=== PATIENT | male | born 1940 | race Caucasian/White ===

== ENCOUNTER 2022-11-02 16:58 | Emergency (ER) | payer MEDICARE, OTHER, SELFPAY ==
--- NOTE | 2022-11-02 17:02 | CT_ITS ---
PROCEDURE INFORMATION: Exam: CT Head Without Contrast Exam date and time: 11/02/2022 6:14 PM Age: 82 years old Clinical indication: Injury or trauma; Fall; Additional info: Trauma, critical injury suspected TECHNIQUE: Imaging protocol: Computed tomography of the head without contrast. Radiation optimization: All CT scans at this facility use at least one of these dose optimization techniques: automated exposure control; mA and/or kV adjustment per patient size (includes targeted exams where dose is matched to clinical indication); or iterative reconstruction. REPORTING DATA: Count of CT and Cardiac NM exams in prior 12 months: This patient has received 8 known CTs and 0 known cardiac nuclear medicine studies in the 12 months prior to the current study. COMPARISON: No relevant prior studies available. FINDINGS: Brain: Age-related volume loss. Decreased attenuation of the supratentorial white matter is likely secondary to chronic microvascular ischemia. 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 No acute intracranial hemorrhage or significant intracranial mass effect. Cerebral ventricles: Ventriculomegaly is commensurate for degree of volume loss. Paranasal sinuses: Visualized sinuses are unremarkable. No fluid levels. Mastoid air cells: Visualized mastoid air cells are well aerated. Bones/joints: Unremarkable. No acute fracture. Soft tissues: Unremarkable. IMPRESSION: No acute intracranial abnormality.
--- NOTE | 2022-11-02 17:02 | CT_ITS ---
PROCEDURE INFORMATION: Exam: CTA Head With Contrast, Arteriography Exam date and time: 11/02/2022 6:26 PM Age: 82 years old Clinical indication: Injury or trauma; Fall; Additional info: Trauma, critical injury suspected TECHNIQUE: Imaging protocol: Computed tomographic angiography of the head with contrast. Exam focused on the arteries. 3D rendering (Not supervised by radiologist): MIP and/or 3D reconstructed images were created by the technologist. Radiation optimization: All CT scans at this facility use at least one of these dose optimization techniques: automated exposure control; mA and/or kV adjustment per patient size (includes targeted exams where dose is matched to clinical indication); or iterative reconstruction. Contrast material: ISOVUE 370; Contrast volume: 100 ml; Contrast route: INTRAVENOUS (IV); REPORTING DATA: Count of CT and Cardiac NM exams in prior 12 months: This patient has received 8 known CTs and 0 known cardiac nuclear medicine studies in the 12 months prior to the current study. COMPARISON: CT HEAD/BRAIN WO CON 11/02/2022 6:14 PM FINDINGS: ANTERIOR CIRCULATION: Right internal carotid artery: Intracranial segment is patent with no significant stenosis. No aneurysm. Right middle cerebral artery: No occlusion or significant stenosis. No aneurysm. Right anterior cerebral artery: No occlusion or significant stenosis. No aneurysm. Left internal carotid artery: Intracranial segment is patent with no significant stenosis. No aneurysm. Left middle cerebral artery: No occlusion or significant stenosis. No aneurysm. Left anterior cerebral artery: No occlusion or significant stenosis. No aneurysm. POSTERIOR CIRCULATION: Right vertebral artery: Diminutive right intracranial vertebral artery. Left vertebral artery: Left vertebral artery is dominant. Basilar artery: Congenitally small caliber basilar artery. Right posterior cerebral artery: origin of the right posterior cerebral artery. Left posterior cerebral artery: origin of the left posterior cerebral artery. IMPRESSION: No acute vascular pathology.
--- NOTE | 2022-11-02 17:02 | CT_ITS ---
PROCEDURE INFORMATION: Exam: CT Cervical Spine Without Contrast Exam date and time: 11/02/2022 6:17 PM Age: 82 years old Clinical indication: Injury or trauma; Fall; Additional info: Trauma, critical injury suspected TECHNIQUE: Imaging protocol: Computed tomography of the cervical spine without contrast. Radiation optimization: All CT scans at this facility use at least one of these dose optimization techniques: automated exposure control; mA and/or kV adjustment per patient size (includes targeted exams where dose is matched to clinical indication); or iterative reconstruction. REPORTING DATA: Count of CT and Cardiac NM exams in prior 12 months: This patient has received 8 known CTs and 0 known cardiac nuclear medicine studies in the 12 months prior to the current study. COMPARISON: CT HEAD/BRAIN WO CON 11/02/2022 6:14 PM FINDINGS: Bones/joints: Vertebral body height and AP alignment is preserved. Previous fusion across C6-C7. There is chronic deformity involving the right articular facet of C6. Moderate degenerative change about the dens. Mild to moderate prevertebral osteophytosis. Bilateral facet joint degenerative change. No acute cervical spine fracture. No definite high-grade central canal stenosis within limitations of technique. Multilevel cervical foraminal stenoses. Lungs: Lung apices are normal. Pleural spaces: No visible pneumothorax. Vasculature: Vascular calcification. Soft tissues: Unremarkable. IMPRESSION: No acute cervical spine fracture.
--- NOTE | 2022-11-02 17:02 | CT_ITS ---
PROCEDURE INFORMATION: Exam: CTA Abdomen and Pelvis With Contrast Exam date and time: 11/02/2022 6:32 PM Age: 82 years old Clinical indication: Injury or trauma; Fall; Additional info: Trauma, critical injury suspected TECHNIQUE: Imaging protocol: Computed tomographic angiography of the abdomen and pelvis with contrast. 3D rendering (Not supervised by radiologist): MIP and/or 3D reconstructed images were created by the technologist. Total images: 445 Radiation optimization: All CT scans at this facility use at least one of these dose optimization techniques: automated exposure control; mA and/or kV adjustment per patient size (includes targeted exams where dose is matched to clinical indication); or iterative reconstruction. Contrast material: ISOVUE 370; Contrast volume: 100 ml; Contrast route: INTRAVENOUS (IV); REPORTING DATA: Count of CT and Cardiac NM exams in prior 12 months: This patient has received 8 known CTs and 0 known cardiac nuclear medicine studies in the 12 months prior to the current study. COMPARISON: CT BONY PELVIS 11/02/2022 6:24 PM FINDINGS: Diaphragm: Moderate elevation left hemidiaphragm. Aorta: Abdominal aorta is atherosclerotic but nonaneurysmal. No abdominal aortic aneurysm or dissection. 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 Celiac trunk and mesenteric arteries: No occlusion or significant stenosis. Renal arteries: No occlusion or significant stenosis. Right iliac arteries: Mildly atherosclerotic right common iliac artery. No stenosis or occlusion. Left iliac arteries: Mildly atherosclerotic left common iliac artery. No stenosis or occlusion. Veins: Numerous pelvic phleboliths. Liver: No mass. Gallbladder and bile ducts: Unremarkable. No calcified stones. No ductal dilation. Pancreas: Unremarkable. No mass. No ductal dilation. Spleen: Nonenlarged spleen with incidental calcified granuloma. Adrenal glands: Minor adrenal thickening. No adrenal mass. Kidneys and ureters: Bilateral peripelvic and renal cortical cysts. No concerning renal mass. Minor bilateral perinephric edema. Stomach and bowel: Collapsed stomach. Small duodenal diverticulum. No bowel obstruction or ileus. Unremarkable small bowel. Mild sigmoid diverticulosis without acute diverticulitis. Unremarkable rectum. Appendix: Normal appendix. Intraperitoneal space: Unremarkable. No free air. No significant fluid collection. Lymph nodes: No retroperitoneal mass, hematoma, or lymphadenopathy. Urinary bladder: Mild bladder wall thickening. Reproductive: Nonenlarged prostate. Bones/joints: Subacute fracture sacrococcygeal junction as described separately. No pelvic or hip fracture. Changes of the lumbar spine described separately. Soft tissues: Small bilateral fat containing inguinal hernias. No abdominal wall contusion or hematoma. IMPRESSION: 1. No acute posttraumatic intra-abdominal or pelvic process. 2. No abdominal aortic aneurysm or dissection. 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 3. Moderate elevation left hemidiaphragm. 4. Sigmoid diverticulosis without acute diverticulitis. 5. Nonspecific bladder wall thickening. 6. Additional chronic and incidental findings.
--- NOTE | 2022-11-02 17:02 | CT_ITS ---
PROCEDURE INFORMATION: Exam: CTA Neck With Contrast Exam date and time: 11/02/2022 6:26 PM Age: 82 years old Clinical indication: Injury or trauma; Fall; Additional info: Trauma, critical injury suspected TECHNIQUE: Imaging protocol: Computed tomographic angiography of the neck with contrast. 3D rendering (Not supervised by radiologist): MIP and/or 3D reconstructed images were created by the technologist. Radiation optimization: All CT scans at this facility use at least one of these dose optimization techniques: automated exposure control; mA and/or kV adjustment per patient size (includes targeted exams where dose is matched to clinical indication); or iterative reconstruction. Contrast material: ISOVUE 370; Contrast volume: 100 ml; Contrast route: INTRAVENOUS (IV); REPORTING DATA: Count of CT and Cardiac NM exams in prior 12 months: This patient has received 8 known CTs and 0 known cardiac nuclear medicine studies in the 12 months prior to the current study. COMPARISON: CT CERVICAL SPINE WO CON 11/02/2022 6:17 PM FINDINGS: Tubes, catheters and devices: Left chest cardiac device. Right common carotid artery: Mild calcification at the right common carotid bifurcation without stenosis. Right internal carotid artery: No stenosis of the extracranial segment. No dissection or occlusion. Right external carotid artery: No occlusion or stenosis of the origin. Left common carotid artery: No stenosis. No dissection or occlusion. Left internal carotid artery: No stenosis of the extracranial segment. No dissection or occlusion. Left external carotid artery: No occlusion or stenosis of the origin. Right vertebral artery: No stenosis. No dissection or occlusion. Left vertebral artery: No stenosis. No dissection or occlusion. Aorta: Aortic calcification. Soft tissues: Normal. No significant soft tissue swelling. Bones/joints: Cervical spine is better evaluated on dedicated exam. IMPRESSION: No acute vascular pathology. REFERENCES: NASCET CRITERIA. The degree of stenosis in the cervical segment of the internal carotid artery is based on NASCET criteria. Normal is no stenosis. Mild is less than 50% stenosis. Moderate is 50-69% stenosis. Severe is 70% to 99% stenosis. Total occlusion is no detectable patent lumen.
--- NOTE | 2022-11-02 17:02 | CT_ITS ---
PROCEDURE INFORMATION: Exam: CT Thoracic Spine Without Contrast Exam date and time: 11/02/2022 6:19 PM Age: 82 years old Clinical indication: Injury or trauma; Fall; Additional info: Trauma, critical injury suspected TECHNIQUE: Imaging protocol: Computed tomography of the thoracic spine without contrast. Total images: 332 Radiation optimization: All CT scans at this facility use at least one of these dose optimization techniques: automated exposure control; mA and/or kV adjustment per patient size (includes targeted exams where dose is matched to clinical indication); or iterative reconstruction. REPORTING DATA: Count of CT and Cardiac NM exams in prior 12 months: This patient has received 8 known CTs and 0 known cardiac nuclear medicine studies in the 12 months prior to the current study. COMPARISON: CT CERVICAL SPINE WO CON 11/02/2022 6:17 PM FINDINGS: Tubes, catheters and devices: Status post left subclavian cardiac pacer. Bones/joints: Thoracic vertebral body height and alignment is maintained. Minor superior endplate depression T3 and T4 likely nonacute. Minor anterior wedging T1 vertebral body of undetermined age but likely nonacute. 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 Trabeculated lucency within the T8 vertebral body resembling benign hemangioma. Small posterior projecting disc osteophyte complexes at C5-C6, C6-C7, and T7-T8. No critical spinal canal stenosis. Symmetric pedicles. Facet joints are appropriately aligned with mild degenerative spondylosis. Posterior elements appear intact. Bilateral posterior ribs are unremarkable. Minor S-shaped thoracic scoliosis. Soft tissues: No paraspinal mass or soft tissue swelling. Posterior paraspinal soft tissues are unremarkable. Vasculature: Mildly atherosclerotic thoracic aorta. Trachea: Adherent mucous right lateral wall the proximal trachea. Lungs: Bibasilar subsegmental atelectasis. Additional mild bilateral dependent atelectasis. Other findings: Mild elevation left hemidiaphragm. IMPRESSION: 1. No acute thoracic fracture or traumatic subluxation. 2. [id number] multilevel degenerative changes as described. 3. Minor S-shaped thoracic scoliosis. 4. Lucent trabeculated bone lesion T8 vertebral body, most likely a benign hemangioma. 5. Minor anterior wedging T1 and minor superior endplate depression T3 and T4 likely nonacute. 6. Additional chronic and incidental findings.
--- NOTE | 2022-11-02 17:02 | CT_ITS ---
PROCEDURE INFORMATION: Exam: CT Lumbar Spine Without Contrast Exam date and time: 11/02/2022 6:22 PM Age: 82 years old Clinical indication: Injury or trauma; Fall; Additional info: Trauma, critical injury suspected TECHNIQUE: Imaging protocol: Computed tomography of the lumbar spine without contrast. Total images: 310 Radiation optimization: All CT scans at this facility use at least one of these dose optimization techniques: automated exposure control; mA and/or kV adjustment per patient size (includes targeted exams where dose is matched to clinical indication); or iterative reconstruction. REPORTING DATA: Count of CT and Cardiac NM exams in prior 12 months: This patient has received 8 known CTs and 0 known cardiac nuclear medicine studies in the 12 months prior to the current study. COMPARISON: CT THORACIC SPINE WO CON 11/02/2022 6:19 PM FINDINGS: Bones/joints: Five non rib-bearing lumbar vertebral segments. Lumbar vertebral body height is maintained. Minimal retrolisthesis of L4 respect both L3 and L5 most likely degenerative. Prominent Schmorl's node inferior L1 endplate. Severe degenerative disc disease L5-S1. Moderate degenerative disc disease remainder of the lumbar spine including prominent partial bridging endplate osteophyte formation at multiple consecutive levels. Moderate degenerate facet joint hypertrophic spondylosis greatest at L3-L4 and L4-L5. No concerning bone lesions. Developmental spinal canal stenosis with short pedicles. In addition, there is severe acquired spinal canal stenosis at L3-L4 and moderate to severe acquired canal stenosis at L2-L3, L4-L5 and to lesser extent L1-L2. Minor broad-based lumbar dextrocurvature centered at L3. Mild degenerative change with vacuum phenomena bilateral SI joints. Straightened lordosis from position or spasm. Kidneys and ureters: Included kidneys are unremarkable. Stomach and bowel: Sigmoid diverticulosis. Vasculature: Abdominal aorta is atherosclerotic but nonaneurysmal. Minor ectasia distal aorta at 2.6 cm. Lymph nodes: No retroperitoneal mass, hematoma, or lymphadenopathy. Soft tissues: No paraspinal soft tissue mass, fluid collection, or edema. IMPRESSION: 1. No acute lumbar fracture or traumatic subluxation. 2. Straightened lordosis from position or muscle spasm. 3. Minor retrolisthesis at L4 most likely degenerative. 4. Degenerative changes as described. 5. Developmental spinal canal stenosis with short pedicles. 6. Superimposed severe acquired spinal canal stenosis at L3-L4 and moderate to severe acquired spinal canal stenosis at L2-L3 and L4-L5. 7. Additional chronic and incidental findings.
--- NOTE | 2022-11-02 17:02 | CT_ITS ---
PROCEDURE INFORMATION: Exam: CTA Chest With Contrast Exam date and time: 11/02/2022 6:32 PM Age: 82 years old Clinical indication: Injury or trauma; Fall; Additional info: Trauma, critical injury suspected TECHNIQUE: Imaging protocol: Computed tomographic angiography of the chest with contrast. 3D rendering (Not supervised by radiologist): MIP and/or 3D reconstructed images were created by the technologist. Total images: 446 Radiation optimization: All CT scans at this facility use at least one of these dose optimization techniques: automated exposure control; mA and/or kV adjustment per patient size (includes targeted exams where dose is matched to clinical indication); or iterative reconstruction. Contrast material: ISOVUE 370; Contrast volume: 100 ml; Contrast route: INTRAVENOUS (IV); REPORTING DATA: Count of CT and Cardiac NM exams in prior 12 months: This patient has received 8 known CTs and 0 known cardiac nuclear medicine studies in the 12 months prior to the current study. COMPARISON: CT ANGIO NECK 11/02/2022 6:26 PM FINDINGS: Tubes, catheters and devices: Status post left subclavian cardiac pacemaker. Pulmonary arteries: Adequate contrast opacification of the pulmonary arteries. No main or segmental pulmonary emboli. Distal branch evaluation compromised by attenuation artifact and respiratory motion. Great vessels off aortic arch: Great vessels enhance appropriately without stenosis or occlusion. Aorta: Thoracic aorta is mildly atherosclerotic but nonaneurysmal. No dissection or acute traumatic injury. Trachea: Mucus along the dependent wall the proximal trachea. Trachea and main bronchi are otherwise patent. Lungs: Bilateral dependent atelectasis at both lung bases and along the major fissures. Additional bibasilar subsegmental atelectasis, greatest on the left. No airspace pneumonic type consolidation. No discrete pulmonary mass. Minor scarring or atelectasis inferior lingula and right middle lobe. Calcified left upper lobe granuloma. Pleural spaces: Unremarkable. No pneumothorax. No pleural effusion. Heart: Heart size is within normal limits. No pericardial effusion. Coronary arteries: No significant coronary artery calcifications. Mediastinal space: No mediastinal mass or hematoma. Lymph nodes: No mediastinal or hilar lymphadenopathy. Diaphragm: Tiny sliding hiatal hernia. Moderate elevation left hemidiaphragm. Bones/joints: No depressed sternal fracture. No displaced rib fractures. Please see separate dedicated CT thoracic spine. Mild degenerative changes bilateral shoulders and AC joints. Soft tissues: Minor bilateral gynecomastia. No chest wall contusion or hematoma. IMPRESSION: 1. No acute posttraumatic intrathoracic process. 2. No main or segmental pulmonary emboli. 3. No aortic aneurysm, dissection, or traumatic injury. 4. Bibasilar subsegmental atelectasis, left greater than right. Additional bilateral dependent atelectasis. 5. Moderate elevation left hemidiaphragm. 6. Additional chronic and incidental findings.
--- NOTE | 2022-11-02 17:03 | [facility].EDGENADL ---
Discharge Plan Disposition Patient Disposition: Home, Self-Care Prescriptions Prescriptions: New methocarbamol 1,000 mg tablet 1,000 mg PO TID PRN (Reason: muscle spasm) Qty: 15 0RF oxycodone 5 mg tablet 5 mg PO Q8H PRN (Reason: Severe pain refractory to Tylenol and ibuprofen) Qty: 15 0RF Rx Instructions: Do not combine with other opiates. Activity Restrictions/Add. Instructions Additional Instructions/Restrictions: At this time was felt you are safe to be discharged home. If new or worsening symptoms please do not hesitate to return the emergency department. Please take your medications as prescribed. Please follow-up with your family doctor within 1 week for continued evaluation. 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 Patient reportedly had a mechanical fall into a hole in the ground with loss of consciousness falling backwards onto the base of the skull. Patient has since had blurry vision causing him to present here for continued evaluation. In route C-spine was immobilized, IV access was obtained. Patient is complaining of posterior headache, no other acute complaints at this time. Related Data Previous Rx's Medication Instructions Recorded methocarbamol 1,000 mg tablet 1,000 mg PO TID PRN muscle spasm 11/02/22 #15 tabs oxycodone 5 mg tablet 5 mg PO Q8H PRN Severe pain 11/02/22 refractory to Tylenol and ibuprofen #15 tabs Allergies Allergy/AdvReac Type Severity Reaction Status Date / Time Penicillins Allergy Intermediate AFFECTS Unverified 07/11/17 14:15 HEART PFSH PFS Disclaimer: The information contained in this section may have been updated after the patient was seen, as this information can be updated by other users. Social History Smoking Status: Never smoker alcohol intake: never current occupational status: employed Travel in the last 8 weeks: None ROS Obtained: Yes Systems reviewed as appropriate & no additional complaints except as documented Physical Exam General General appearance: alert and in no apparent distress Head Head exam: atraumatic and normocephalic Eye Eye exam: Present PERRL and EOMI ENT ENT exam: Present mucous membranes moist Neck Neck exam: Present normal inspection and tenderness (Cervical spine) Chest Chest inspection: Present normal inspection and symmetric chest wall rise Respiratory Respiratory exam: Present normal lung sounds bilaterally; Absent respiratory distress Cardiovascular Cardiovascular exam: Present regular rate and normal rhythm Abdominal Exam Abdominal exam: Present soft; Absent tenderness Extremities Exam Extremities exam: Present normal inspection Back Exam Back exam: Present other (Tenderness thoracolumbar spine, tenderness left SI joint) Neurological Exam Neurological exam: Present alert and oriented X3 Psychiatric Psychiatric exam: Present normal affect Skin Skin exam: Present warm and dry Medical Decision Making Matthew Inquiry Pt receiving controlled substance: No Vital Signs: 11/02/22 17:14 11/02/22 17:05 11/02/22 17:30 Temperature 98.0 F Temperature Source Oral Pulse Rate 82 72 Pulse Rate [Left] 73 Respiratory Rate 16 16 18 Blood Pressure 122/77 128/74 Blood Pressure [Right Arm] 122/77 Blood Pressure Mean 92 94 Blood Pressure Mean [Right Arm] 92 02 Sat by Pulse Oximetry 96 92 L 90 L Oxygen Delivery Method Room Air 11/02/22 18:00 Temperature Temperature Source Pulse Rate 74 Pulse Rate [Left] Respiratory Rate 18 Blood Pressure 121/76 Blood Pressure [Right Arm] Blood Pressure Mean 91 Blood Pressure Mean [Right Arm] 02 Sat by Pulse Oximetry 92 L Oxygen Delivery Method Lab Data Lab Results 11/02/22 17:06: WBC 5.7, RBC 4.23 L, Hgb 14.6, Hct 45.0, MCV 106.5 H, MCH 34.5 H, MCHC 32.4, RDW 13.9, Plt Count 217, MPV 8.0, Neut % (Auto) 57.6, Lymph % (Auto) 29.1, Mccreary % (Auto) 8.0, Eos % (Auto) 4.7, Baso % (Auto) 0.7, Neut # (Auto) 3.3, Lymph # (Auto) 1.7, Mccreary # (Auto) 0.5, Eos # (Auto) 0.3, Baso # (Auto) 0.0 11/02/22 17:06: Sodium 139, Potassium 3.9, Chloride 103, Carbon Dioxide 27, Anion Gap 12.9, BUN 31 H, Creatinine 1.40 H, Estimated Creat Clear 40, Estimated GFR 49 L, Est GFR ( Amer) 59, Glucose 97, Calcium 8.3 L, Total Bilirubin 0.8, AST 30, ALT 15, Alkaline Phosphatase 104, Total Protein 6.6, Albumin 4.0, Globulin 2.6, Albumin/Globulin Ratio 1.5 Result diagrams: 11/02/22 17:06 11/02/22 17:06 Orders (Tests/Meds): ED MEDICATIONS Discontinued Medications Generic Name Dose Route Start Last Admin Trade Name Freq PRN Reason Stop Dose Admin Iopamidol 175 ml 11/02/22 18:42 11/02/22 18:44 Iopamidol-370 (76%);100ml Bottle IV 11/02/22 18:43 175 ml ONCE ONE Administration Methocarbamol 1,000 mg 11/02/22 19:48 11/02/22 19:52 Methocarbamol 500mg Tablet PO 11/02/22 19:49 1,000 mg ONCE ONE Administration Oxycodone HCl 5 mg 11/02/22 19:48 11/02/22 19:51 Oxycodone 5mg Immediate Release Tablet PO 11/02/22 19:49 5 mg Q4HP ONE Administration Sodium Chloride 10 ml 11/02/22 18:42 11/02/22 18:44 Sodium Chloride 0.9% 10ml Syr (Rad Only) IV 11/02/22 18:43 10 ml ONCE ONE Administration Sodium Chloride 100 ml 11/02/22 18:42 11/02/22 18:44 0.9 % Sodium Chloride 50 Ml Vial IV 11/02/22 18:43 100 ml ONCE ONE Administration ORDERS Category Date Time Status CT angio abdomen pelvis Stat Cat Scan 11/02/22 17:[address] angio chest - dissection Stat Cat Scan 11/02/22 17:[address] angio head Stat Cat Scan 11/02/22 17:[address] angio neck Stat Cat Scan 11/02/22 17:[address] bony pelvis Stat Cat Scan 11/02/22 17:[address] cervical spine wo con Stat Cat Scan 11/02/22 17:[address] head/brain wo con Stat Cat Scan 11/02/22 17:[address] lumbar spine wo con Stat Cat Scan 11/02/22 17:[address] thoracic spine wo con Stat Cat Scan 11/02/22 17:02 Completed Complete Blood Count Auto Diff Stat Lab 11/02/22 17:06 Completed Comprehensive Metabolic Panel Stat Lab 11/02/22 17:06 Completed Medical Decision Narrative: In summary patient is an 82-year-old male who presents emergency department for evaluation of a ground-level fall on blood thinners. Patient is hemodynamically stable nontoxic-appearing upon arrival, afebrile. C-spine precautions will be maintained. Differential diagnosis includes injury sustained to the head, neck, thorax. Work-up will be conducted with hematologic labs, full trauma scans. Work-up reviewed by me, hematologic labs are nonactionable, elevated creatinine with unknown baseline, no critical electrolyte abnormalities. 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 There is a subacute fracture of the sacrococcygeal junction with early callus formation, otherwise no acute bony pelvis fracture. The case was discussed with orthopedics who advised patient can be weightbearing as tolerated however will need significant pain control. Patient was given a dose of oral oxycodone and tolerated ambulation at bedside. Patient had largely resolved visual symptoms and shared decision-making discussion was had patient feels comfortable with outpatient management at this time. Patient be discharged with a course of oxycodone and Robaxin. Critical Care Time Critical Care Time Critical Care Time: No Attestation: On , the high probability of a clinically significant, sudden or life threatening deterioration of the following system(s) required my full and direct attention, intervention and personal management. The time I documented below is in addition to time spent performing reported procedures but includes the following listed in this critical care notation.
[2022-11-02 17:05] VITALS: BP 122/77; PULSE 82; RESP 16; O2SAT 92
--- NOTE | 2022-11-02 17:07 | CT_ITS ---
PROCEDURE INFORMATION: Exam: CT Pelvis Without Contrast; Skeletal Exam date and time: 11/02/2022 6:24 PM Age: 82 years old Clinical indication: Injury or trauma; Fall; Additional info: Fall, L si pain TECHNIQUE: Imaging protocol: Computed tomography of the pelvis without contrast. Exam focused on the skeleton. Total images: 819 Radiation optimization: All CT scans at this facility use at least one of these dose optimization techniques: automated exposure control; mA and/or kV adjustment per patient size (includes targeted exams where dose is matched to clinical indication); or iterative reconstruction. REPORTING DATA: Count of CT and Cardiac NM exams in prior 12 months: This patient has received 8 known CTs and 0 known cardiac nuclear medicine studies in the 12 months prior to the current study. COMPARISON: CT LUMBAR SPINE WO CON 11/02/2022 6:22 PM FINDINGS: Stomach and bowel: Mild sigmoid diverticulosis. No acute diverticulitis. Appendix: Normal appendix. Urinary bladder: Mild bladder wall thickening likely from incomplete distention. No bladder stones. Reproductive: Nonenlarged prostate with central calcification. Vasculature: Atherosclerotic distal abdominal aorta and iliac arteries. Multiple pelvic phleboliths. Bones/joints: Subacute fracture at the sacrococcygeal junction with evidence of callus formation implying early bone healing. Fracture line is still clearly evident with bone remodeling. Adjacent soft tissue swelling. No sacral fracture. Severe degenerative disc disease L5-S1. Moderate degenerative disc disease L4-L5. Dextrocurvature lower lumbar spine. No acute pelvic or hip fracture. Symmetric mild degenerative changes bilateral hips with subchondral sclerosis and small enthesophytes along the acetabuli. Femoral head and neck contours are preserved bilaterally. No suspicious bone lesions. Mild degenerative change of bilateral SI joints. Soft tissues: Small fat containing bilateral inguinal hernias. IMPRESSION: 1. Subacute fracture at the sacrococcygeal junction with early callus formation and mild adjacent soft tissue swelling. Please correlate with reported time of injury. 2. Otherwise, no acute pelvic, sacral, or hip fracture. 3. Degenerative changes as described. 4. Mild sigmoid diverticulosis without diverticulitis. 5. Mild bladder wall thickening likely from incomplete distention versus chronic outlet obstruction. Cannot entirely exclude cystitis.
[2022-11-02 17:14] VITALS: BP 122/77; PULSE 73; RESP 16; TEMP 36.7; O2SAT 96; BMI 20.3
[2022-11-02 17:26] LABS: Chloride 103 mmol/L (98-107); Potassium 3.9 mmoL/L (3.5-5.1); Sodium 139 mmol/L (136-145)
[2022-11-02 17:29] LABS: Alanine Aminotransferase 15 U/L (12-78); Albumin/Globulin Ratio 1.5 (1.1-1.8); Alkaline Phosphatase 104 U/L (38-126); Anion Gap 12.9 mEq/L (5-15); Aspartate Amino Transferase 30 U/L (17-59); Bilirubin,Total 0.8 mg/dl (0.2-1.3); Blood Urea Nitrogen 31 mg/dl (9-20); Carbon Dioxide 27 mmol/L (22.0-30.0); Creatinine Clearance Estimated 40 mL/min (50-200); Estimated Glomerular Filt Rate 49 ml/min (>60); GFR (African American) 59 ML/MIN (>60); Globulin 2.6 g/dL (1.3-3.2); Total Protein,Serum 6.6 g/dl (6.3-8.2)
[2022-11-02 17:30] VITALS: BP 128/74; PULSE 72; RESP 18; O2SAT 90
[2022-11-02 17:30] LABS: Calcium 8.3 mg/dl (8.4-10.2); Glucose 97 mg/dl (74-100)
[2022-11-02 17:39] LABS: Basophils % 0.7 % (0.1-2.0); Eosinophils # 0.3 K/mm3 (0.0-0.4); Eosinophils % 4.7 % (0.1-12.0); Hemoglobin 14.6 g/dL (14.1-18.0); Lymphocytes # 1.7 K/mm3 (0.7-4.5); Lymphocytes % 29.1 % (10-50); Mean Corpuscular HGB Conc 32.4 g/dL (31.8-35.4); Mean Corpuscular Hemoglobin 34.5 pg (27.0-31.2); Mean Corpuscular Volume 106.5 fl (80-94); Monocytes # 0.5 K/mm3 (0.1-1.0); Neutrophils # 3.3 K/mm3 (1.8-7.8); Neutrophils % 57.6 % (37.0-80.0); Platelet Count 217 K/mm3 (142-424); Red Blood Count 4.23 M/mm3 (4.60-6.20); Red Cell Distribution Width 13.9 % (11.5-17.5); White Blood Count 5.7 K/mm3 (4.8-10.8)
[2022-11-02 18:00] VITALS: BP 121/76; PULSE 74; RESP 18; O2SAT 92
[2022-11-02] MEDS: IOPAMIDOL-370 (76%);100ML BOTTLE 175 ML IV (18:44)
[2022-11-02] MEDS: 0.9 % SODIUM CHLORIDE 50 ML VIAL 100 ML IV (18:44)
[2022-11-02] MEDS: SODIUM CHLORIDE 0.9% 10ML SYR (RAD ONLY) 10 ML IV (18:44)
--- NOTE | 2022-11-02 19:41 | PC.NURSE ---
Dr. Gusman paged for ED doctor. ED doctor on phone with Dr. Gusman
[2022-11-02] MEDS: OXYCODONE 5MG IMMEDIATE RELEASE TABLET 5 MG PO (19:51)
[2022-11-02] MEDS: METHOCARBAMOL 500MG TABLET 1000 MG PO (19:52)
[2022-11-02 21:11] VITALS: BP 140/86; PULSE 76; RESP 16; TEMP 36.6; O2SAT 97
== END 2022-11-02 21:15 | disposition home or self-care (01) ==
PROVIDERS: Emergency Provider Emergency Medicine
DX: S06.2X9A Diffuse traumatic brain injury with loss of consciousness of unspecified duration, initial encounter (principal); S32.89XA Fracture of other parts of pelvis, initial encounter for closed fracture; W17.2XXA Fall into hole, initial encounter
CPT/HCPCS: 70450; 70496; 70498; 71275; 72125; 72128; 72131; 72192; 74174; 80053; 85025; 99285; Q9967